=== PATIENT | male | born 1975 | race Two or more races ===

== ENCOUNTER 2025-06-05 15:48 | Emergency (ER) | payer MEDICAID, SELFPAY ==
[2025-06-05] VITALS (8 sets, daily range): BP systolic 187–210; BP diastolic 99–125; PULSE 65–85; RESP 16–18; TEMP 36.6–37; O2SAT 95–98; BMI 31.9
--- NOTE | 2025-06-05 16:06 | PD.EDADULT ---
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 Patient reports that he experienced intense pain and tried to wrap it after the incident. He said that his pain is 10 out of 10 however denies any numbness or tingling at this time. Last TDAP was 1 year ago. He has no other complaints at this time. Related Data Home Medications ?Medication ?Instructions ?Recorded ?Confirmed amlodipine 5 mg tablet 5 mg PO QDAY 01/08/23 01/08/23 lisinopril 20 1 tab PO QDAY 01/08/23 01/08/23 mg-hydrochlorothiazide 25 mg tablet Previous Rx's ?Medication ?Instructions ?Recorded sulfamethoxazole 800 1 tab PO BID #14 tabs 12/28/23 mg-trimethoprim 160 mg tablet (Bactrim DS) cyclobenzaprine 5 mg tablet 5 mg PO TID PRN muscle spasm #30 06/02/24 tabs cephalexin 500 mg capsule 500 mg PO TID 5 days #15 caps 06/05/25 hydrocodone 5 mg-acetaminophen 325 1 tab PO Q8H PRN pain 3 days #6 06/05/25 mg tablet tabs Allergies Allergy/AdvReac Type Severity Reaction Status Date / Time No Known Allergies Allergy Verified 06/05/25 15:50 Review of Systems Review of Systems Narrative Review of Systems: 12 point ROS reviewed and is otherwise negative unless stated directly in the HPI ED Exam Narrative Physical exam: General: AAOx3, NAD, HEENT: Moist mucous membranes, conjunctiva clear, EOMI, PERRLA, Cardiovascular: S1, S2, radial pulses +2 bilat, RRR Pulmonary: CTAB bilat no cough, no wheezing GI: No tenderness to light or deep palpitation, no guarding, rigidity, rebound tenderness or distension Extremities: No presence of trace or pitting edema in lower extremities bilaterally, dorsalis pedis pulses +2 bilaterally MSK: Right open lacerations one by one on 2nd and 3rd digits of the DIP, openly bleeding at this time, no foreign body visualized Neuro: AAOx3, no focal motor or sensory deficits in the UE or LE bilat Psych: Good judgement, thought and behavior Course Quality Measures none Orders Category Date Time Status Miscellaneous Nursing Order NOW Care 06/05/25 17:59 Completed Acetaminophen Tab [Tylenol Tab] Med 06/05/25 17:15 Discontinued 650 mg PO X1 ONE HYDROcodone*/APAP 5/325 [[place] 5/325] Med 06/05/25 17:35 Discontinued 1 tab PO X1 ONE NIFEdipine [Procardia Xl] Med 06/05/25 18:10 Discontinued 30 mg PO X1 ONE Nitroglycerin Oint 2% [Nitro-paste Oint 2%] Med 06/05/25 20:07 Discontinued 1 inch TOP X1 ONE Nitroglycerin [Nitrostat 1/150] Med 06/05/25 20:07 Discontinued 0.4 mg SL X1 ONE TET,DIP/PERT AC (Adult)-Tdap [Boostrix Adult (Tdap) Med 06/05/25 17:49 Discontinued Vacc] 0.5 ml IMI .ONCE ONE Vital Signs Vital signs: Vital Signs Temperature 98.5 F 06/05/25 16:20 Pulse Rate 72 06/05/25 16:20 Respiratory Rate 18 06/05/25 16:20 Blood Pressure 210/120 H 06/05/25 16:20 Pulse Oximetry (%) 95 06/05/25 16:20 Oxygen Delivery Method Room Air 06/05/25 16:20 PROCEDURES: Laceration Laceration 1: Site: hand Side (If applicable): right Size (cm): 1 Description: linear Depth: simple, single layer Local Anesthetic: lidocaine 1% Amount of anesthesia used (mL): 3 Pre-repair: wound explored and irrigated extensively Skin layer closed with: nylon Suture size (cm): 6-0 Number of sutures: 4 Technique: simple, interrupted Laceration 2: Site: hand Side (If applicable): right (2 digit ) Size (cm): 1 Description: linear and flap Depth: involves muscle layer Local Anesthetic: lidocaine 1% Amount of anesthesia used (mL): 3 Pre-repair: wound explored and irrigated extensively Skin layer closed with: nylon Suture size (cm): 6-0 Number of sutures: 4 Technique: simple, interrupted Discharge Plan Plan Patient Disposition: HOME (Self Care) Prescriptions/Referrals Prescriptions/Med Rec: New cephalexin 500 mg capsule 500 mg PO TID 5 Days Qty: 15 0RF Rx Instructions: Take one capsule by mouth three times a day hydrocodone-acetaminophen 5-325 mg tablet 1 tab PO Q8H MDD 3 PRN (Reason: pain) 3 Days Qty: 6 0RF Rx Instructions: Take one tablet by mouth up to three times a day for severe pain No Action sulfamethoxazole-trimethoprim [Bactrim DS] 800-160 mg tablet 1 tab PO BID Qty: 14 0RF cyclobenzaprine 5 mg tablet 5 mg PO TID PRN (Reason: muscle spasm) Qty: 30 0RF amlodipine 5 mg Tablet 5 mg PO QDAY lisinopril-hydrochlorothiazide 20-25 mg Tablet 1 tab PO QDAY Problem List Clinical Impression: Laceration Patient/Caregiver Discharge Instructions Discharge Activity: activity as tolerated Additional Instructions: Discharge instructions Follow-up with your PCP within 1 week Take your medicine, Keflex, as prescribed You will need your stitches removed outpatient, 10-14 days or come back to the ER for removal. Return to ED if your symptoms worsen or return Print Language: Maori Stand Alone Forms: Mary Award Info., Patient Portal Info Letter MDM Narrative MDM hospital course (for use when minimal MDM required): 1753: Perform like a pair, give acetaminophen and [place] x 1. Patient blood pressure is elevated in the 190s systolic blood pressure, we will see how pain management improves patient's blood pressure, however will likely need additional antihypertensive however we do not want to correct too quickly. Also put bacitracin and nonstick dressing for patient. 181: Nifedipine 30 mg x1. 2006: NTG was given for continous elevated BP. BP had decreased and pt was medically cleared for discharged. Medication Administration(s) Medication Administration History Discontinued Medications Acetaminophen (Acetaminophen 325 Mg Tablet) 650 mg PO X1 ONE Stop: 06/05/25 17:16 Last Admin: 06/05/25 17:28 Dose: 650 mg Documented By: THOMAS Hydrocodone Bitart/Acetaminophen (Hydrocodone/Apap 5/325 Tablet) 1 tab PO X1 ONE Stop: 06/05/25 17:36 Last Admin: 06/05/25 17:44 Dose: 1 tab Documented By: THOMAS Diphtheria/Tetanus/Acell Pertussis (Diphth,Pertuss(Acell),Tet Vac 0.5 Ml Syr- Adult) 0.5 ml IMi .ONCE ONE Stop: 06/05/25 17:50 Last Admin: 06/05/25 18:41 Dose: Not Given Documented By: THOMAS Non-Admin Reason: Not Given Comments: PT REFUSED Nifedipine (Nifedipine Xl 30 Mg Tabcr) 30 mg PO X1 ONE Stop: 06/05/25 18:11 Last Admin: 06/05/25 18:39 Dose: 30 mg Documented By: THOMAS Nitroglycerin (Nitroglycerin 0.4 Mg Subl Btl #25) 0.4 mg SL X1 ONE Stop: 06/05/25 20:08 Last Admin: 06/05/25 20:18 Dose: 0.4 mg Documented By: IVONNE Nitroglycerin (Nitroglycerin Oint 2% 1 Inch Packet) 1 inch TOP X1 ONE Stop: 06/05/25 20:08 Last Admin: 06/05/25 20:19 Dose: 1 inch Documented By: IVONNE
[2025-06-05] MEDS: ACETAMINOPHEN 325 MG TABLET 650 MG PO (17:28)
[2025-06-05] MEDS: HYDROcodone/APAP 5/325 TABLET 1 TAB PO (17:44)
--- NOTE | 2025-06-05 18:37 | EDNOTE_ITS ---
Emergency Room Addendum Addendum Narrative: 1800: Care assumed from Dr. Mackenzie (emergency resident physician). Past medical, surgical, social and family history reviewed. Vitals and home medications reviewed. Results and treatment plan discussed. I will assume the care of the patient at this time and will follow the patient, pending stabilization of BP. The following addendum documentation note is intended to reflect any pending information, findings, or radiology results not included in the patient?s initial chart by the previous shift scribe. Kindly asked to F/U on patient with lacerations to right hand which have been repaired by previous provider. Who was notably hypertensive and treated initially with Procardia 30 mg without significant response. Patient's blood pressure increased to 200/125 range and patient remained asymptomatic throughout ED course. Further inquiry indicated patient is noncompliant with blood pressure medication regimen. Patient was administered topical and sublingual Nitro with reduction of BP within normal. Emphasis on compliance. Considered hemodynamic ally stable for discharge. Diagnosis should include accelerated hypertension.
[2025-06-05] MEDS: NIFEdipine XL 30 MG TABCR PO (18:39)
[2025-06-05] MEDS: NITROGLYCERIN 0.4 MG SUBL BTL #25 SL (20:18)
[2025-06-05] MEDS: NITROGLYCERIN OINT 2% 1 INCH PACKET TOP (20:19)
== END 2025-06-05 21:20 | disposition home or self-care (01) ==
PROVIDERS: PCP Physician Assistant
DX: S61.411A Laceration without foreign body of right hand, initial encounter (principal); I10 Essential (primary) hypertension; W19.XXXA Unspecified fall, initial encounter
CPT/HCPCS: 12001; 99283; A9270